=== PATIENT | male | born 1955 | race Two or more races ===

== ENCOUNTER 2019-02-17 08:22 | Outpatient (CLI) | payer OTHER ==
[~2019-02-17] VITALS: Ht 152.4 cm; Wt 79.8 kg
== END 2019-02-17 08:40 | disposition home or self-care (01) ==
LOC: OFIC 805 08:22
DX: H61.23 Impacted cerumen, bilateral (principal); H90.3 Sensorineural hearing loss, bilateral

== ENCOUNTER 2022-11-09 09:15 | Outpatient (CLI) | payer OTHER | END 2022-11-09 09:16 | disposition home or self-care (01) | LOC: LAB 09:15 | DX: Z11.52 Encounter for screening for COVID-19 (principal); Z20.822 Contact with and (suspected) exposure to COVID-19; Z20.828 Contact with and (suspected) exposure to other viral communicable diseases ==

== ENCOUNTER 2025-06-22 08:06 | Emergency (ER) | payer OTHER ==
[~2025-06-22] VITALS: Ht 170.2 cm; Wt 80.3 kg
[2025-06-22] MEDS ORDERED: KETOROLAC TROMETHAMINE 30 MG VIAL IM STA (09:11)
[2025-06-22 09:56] LABS: BASO % 0.4 % (0.1-1.2); EOS # 0.09 (0.04-0.54); EOS % 1.3 % (0.7-7.0); LYMPH # 1.87 (1.18-3.74); LYMPH % 28.0 % (19.3-53.1); MEAN PLATELET VOLUME 9.40 fl (9.4-12.4); MONO # 0.48 (0.24-0.82); MONO % 7.2 % (4.7-12.5); NEUT # 4.18 (1.56-6.13); NEUT % 62.8 % (34.0-71.1); RED CELL DISTRIBUTION WIDTH 12.0 % (11.6-14.4)
[2025-06-22 09:59] LABS: URINE APPEARANCE Clear; URINE BILIRRUBIN Negative (NEGATIVE); URINE BLOOD Negative; URINE COLOR Yellow; URINE GLUCOSE Negative (NEGATIVE); URINE KETONE Trace (NEGATIVE); URINE LEUKOCYTE Negative; URINE NITRATE Negative; URINE PROTEIN Negative (NEGATIVE); URINE UROBILINOGEN 0.2 E.U./dl
[2025-06-22 10:03] LABS: URINE RBC 2.1 uL (0.0-20.8); URINE WBC 2.4 uL (0.0-23.2)
[2025-06-22 10:14] LABS: URINE BACTERIA 3.5 uL (0.0-1933); URINE CAST 0.29 uL (0.0-1.40); URINE EPITHELIAL CELLS 1.2 uL (0.0-38.8)
[2025-06-22 10:56] LABS: COVID-19 AG NEGATIVE (NEGATIVE)
[2025-06-22 11:16] LABS: ALT/SGPT 63.0 U/L (12-78); AST/SGOT 31.0 U/L (15-37); BILIRUBIN TOTAL 0.56 mg/dL (0.3-1.2); BUN CREA RATIO 14.0 (7.0-25.0); CREATININE SERUM 0.95 mg/dL (0.70-1.30); GFR 78.15; GLOBULINA 3.1 G/DL (2.4-3.5); GLUCOSE FASTING 74.0 mg/dL (65-100); OSMOLALITY SERUM 284.0 MOSM/KG (275-295)
== END 2025-06-22 11:47 | disposition home or self-care (01) ==
LOC: ER 08:06
PROVIDERS: General Practice
DX: N50.819 Testicular pain, unspecified (principal); R09.81 Nasal congestion; Z20.822 Contact with and (suspected) exposure to COVID-19; N43.2 Other hydrocele

== ENCOUNTER 2025-08-09 08:07 | Emergency (ER) | payer OTHER ==
[~2025-08-09] VITALS: Ht 170.2 cm; Wt 81.6 kg
[2025-08-09] MEDS ORDERED: ROSUVASTATIN CAL5 MG PO (08:24)
[2025-08-09 10:40] LABS: BASO % 0.5 % (0.1-1.2); EOS # 0.00 (0.04-0.54); EOS % 0.0 % (0.7-7.0); LYMPH # 0.62 (1.18-3.74); LYMPH % 33.2 % (19.3-53.1); MEAN PLATELET VOLUME 9.30 fl (9.4-12.4); MONO # 0.24 (0.24-0.82); NEUT # 0.99 (1.56-6.13); NEUT % 53.0 % (34.0-71.1); RED CELL DISTRIBUTION WIDTH 12.3 % (11.6-14.4)
[2025-08-09 10:46] LABS: MONO % 12.8 % (4.7-12.5)
[2025-08-09 11:22] LABS: COVID-19 AG NEGATIVE (NEGATIVE)
[2025-08-09 11:47] LABS: ALT/SGPT 41.0 U/L (12-78); AST/SGOT 41.0 U/L (15-37); BILIRUBIN TOTAL 0.44 mg/dL (0.3-1.2); BUN CREA RATIO 10.0 (7.0-25.0); CREATININE SERUM 1.05 mg/dL (0.70-1.30); GFR 69.43; GLOBULINA 3.8 G/DL (2.4-3.5); GLUCOSE FASTING 104.0 mg/dL (65-100); OSMOLALITY SERUM 277.0 MOSM/KG (275-295)
[2025-08-09] MEDS ORDERED: ACETAMINOPHEN500 M1 PO (12:28)
[2025-08-09] MEDS ORDERED: GILTUSS COUGH-118 M1 PO (12:30)
== END 2025-08-09 12:48 | disposition home or self-care (01) ==
LOC: ER 08:08
PROVIDERS: Preventive Medicine Public Health & General Preventive Medicine
DX: B34.9 Viral infection, unspecified (principal); E78.49 Other hyperlipidemia; Z20.822 Contact with and (suspected) exposure to COVID-19